=== PATIENT | male | born 1955 | race Hispanic/Latino ===

== ENCOUNTER → 2021-01-19 | Outpatient (CLI) | payer OTHER | LOC: MRI 11:46 | PROVIDERS: ATTEND Specialist | DX: S32.010A Wedge compression fracture of first lumbar vertebra, initial encounter for closed fracture (principal) | CPT/HCPCS: 72148 ==

== ENCOUNTER 2021-04-09 08:59 | Outpatient (RCR) | payer OTHER | END 2021-04-10 | LOC: PT 08:59 | PROVIDERS: ATTEND Specialist | DX: S32.010D Wedge compression fracture of first lumbar vertebra, subsequent encounter for fracture with routine healing (principal) ==

== ENCOUNTER 2021-04-19 07:59 | Outpatient (RCR) | payer OTHER | END 2021-05-11 | LOC: PT 07:59 | PROVIDERS: ATTEND Specialist | DX: S32.010D Wedge compression fracture of first lumbar vertebra, subsequent encounter for fracture with routine healing (principal) | CPT/HCPCS: 97139 ==